=== PATIENT | male | born 1975 | race Caucasian/White ===

== ENCOUNTER → 2020-12-09 13:55 | Outpatient (CLI) | payer MEDICARE, SELFPAY | PROVIDERS: Visit Provider Obstetrics & Gynecology Gynecology | DX: Z01.818 Encounter for other preprocedural examination (principal); Z20.822 Contact with and (suspected) exposure to COVID-19 | CPT/HCPCS: U0003 ==

== ENCOUNTER 2021-01-30 15:20 | Emergency (ER) | payer MEDICARE, MEDICAID, SELFPAY ==
[2021-01-30] VITALS (10 sets, daily range): BP systolic 116–166; BP diastolic 75–128; PULSE 89–101; RESP 11–24; TEMP 36.6–36.8; O2SAT 92–99; BMI 39.0
--- NOTE | 2021-01-30 15:11 | ECG_ITS ---
APPROVED REPORT Exam: Resting ECG HR:97 bpm ECG Measurements Heart Rate 97 AXES ME 148 P 38 QRSd 106 QRS 69 QT 388 T 50 QTc 492 Conclusion Normal sinus rhythm Late R wave progression, possible normal variant, present in 2017 Isolated Q-wave in III, also present 2017 Abnormal ECG Electronically signed by : Elie Azul, 01/30/2021 18:04:19
--- NOTE | 2021-01-30 15:25 | XR_ITS ---
PROCEDURE INFORMATION: Exam: XR Chest Exam date and time: 01/30/2021 3:25 PM Age: 45 years old Clinical indication: Other: Chest pain TECHNIQUE: Imaging protocol: XR of the chest. Views: 1 view. COMPARISON: CR CXR1 CHEST-PORTABLE 04/13/2017 8:19 AM FINDINGS: Airway: The airways are patent. Lungs: Low lung volumes causes crowding of the bronchovascular structures. Subtle patchy opacities in the bilateral lung bases. Remainder of the lungs are clear. Pleural spaces: There are no pleural effusions present. There is no evidence of pneumothorax. Heart/Mediastinum: Cardiomediastinal silhouette is magnified due to technique. Bones/joints: No acute skeletal abnormality or aggressive osseous lesion. IMPRESSION: Subtle patchy airspace opacities in the bilateral lung bases may be related to crowding of bronchovascular structures versus developing acute airspace disease.
--- NOTE | 2021-01-30 15:26 | CT_ITS ---
PROCEDURE INFORMATION: Exam: CTA Chest With Contrast Exam date and time: 01/30/2021 3:26 PM Age: 45 years old Clinical indication: Chest pain; Additional info: Chest pain to back with mild hypoxia TECHNIQUE: Imaging protocol: Computed tomographic angiography of the chest with contrast. 3D rendering (Not supervised by radiologist): MIP and/or 3D reconstructed images were created by the technologist. Radiation optimization: All CT scans at this facility use at least one of these dose optimization techniques: automated exposure control; mA and/or kV adjustment per patient size (includes targeted exams where dose is matched to clinical indication); or iterative reconstruction. Contrast material: ISOVUE 370; Contrast volume: 70 ml; Contrast route: INTRAVENOUS (IV); COMPARISON: [facility] CTA-CHEST 04/13/2017 9:48 AM FINDINGS: Limitations: Study is limited by respiratory motion and suboptimal contrast bolus. Pulmonary arteries: Bolus timing is insufficient for definitive exclusion of small peripheral pulmonary emboli. No large pulmonary emboli are appreciated within the main pulmonary arteries. Proximal through distal segmental branches are obscured by suboptimal contrast bolus and respiratory motion. Aorta: The aorta is normal. There is a bovine aortic arch, with a common origin of the left common carotid and brachiocephalic arteries. Lungs: There are multiple punctate pulmonary parenchymal calcifications, consistent with remote granulomatous organism exposure. Evaluation of the lung parenchyma is partially limited by respiratory motion. Mild atelectasis is suspected at the lung bases. No acute interstitial or airspace disease. The airways are patent. Pleural spaces: Unremarkable. No pneumothorax. No pleural effusion. Heart: The heart is mildly enlarged. There is moderate atherosclerotic calcification of the coronary arteries. There is calcification of the aortic valve annulus. No pericardial thickening or effusion. Mediastinal space: A small hiatal hernia is present. Lymph nodes: Unremarkable. No enlarged lymph nodes. Liver: Slightly lobulated liver contour and hepatomegaly, raising concern for the possibility of hepatocellular disease. Correlation with pertinent labs is recommended. Gallbladder and bile ducts: Multiple calcified gallstones are present. Spleen: The spleen demonstrates punctate calcifications, consistent with remote granulomatous organism exposure. Bones/joints: No acute skeletal pathology. Moderate multilevel degenerative changes of the spine, as manifested by multilevel anterior osteophytes and multilevel decrease in intervertebral disc space. Soft tissues: Unremarkable. Other findings: The visualized intra-abdominal structures demonstrate no acute findings. IMPRESSION: 1. No large pulmonary emboli within the main pulmonary arteries, however the proximal through distal segmental branches are not confidently evaluated due to suboptimal contrast bolus and significant respiratory motion artifact. 2. No other acute thoracic pathology is otherwise appreciated. 3. Incidental findings as detailed above.
[2021-01-30 15:36] LABS: Basophils # 0.3 K/mm3 (0-0.2); Basophils % 2.3 % (0.1-2.0); Eosinophils # 0.1 K/mm3 (0.0-0.4); Eosinophils % 1.1 % (0.1-12.0); Hematocrit 47.2 % (42.0-52.0); Hemoglobin 15.5 g/dL (14.1-18.0); Lymphocytes # 2.4 K/mm3 (0.7-4.5); Lymphocytes % 19.1 % (10-50); Mean Corpuscular HGB Conc 32.9 g/dL (31.8-35.4); Mean Corpuscular Hemoglobin 31.4 pg (27.0-31.2); Mean Corpuscular Volume 95.3 fl (80-94); Mean Platelet Volume 8.2 fl (7.4-10.4); Monocytes # 0.7 K/mm3 (0.1-1.0); Monocytes % 5.4 % (1.7-9.3); Neutrophils # 8.9 K/mm3 (1.8-7.8); Platelet Count 192 K/mm3 (142-424); Red Blood Count 4.95 M/mm3 (4.60-6.20); Red Cell Distribution Width 15.1 % (11.5-17.5); White Blood Count 12.4 K/mm3 (4.8-10.8)
--- NOTE | 2021-01-30 15:41 | ECG_ITS ---
APPROVED REPORT Exam: Resting ECG HR:91 bpm ECG Measurements Heart Rate 91 AXES MI 154 P 41 QRSd 110 QRS 59 QT 394 T 41 QTc 484 Conclusion Normal sinus rhythm Cannot rule out Anterior infarct, age undetermined Abnormal ECG Electronically signed by : Elie Azul, 01/30/2021 18:03:25
[2021-01-30 16:06] LABS: Chloride 97 mmol/L (98-107); Potassium 4.6 mmoL/L (3.5-5.1); Sodium 133 mmol/L (136-145)
[2021-01-30 16:08] LABS: Alanine Aminotransferase 84 U/L (12-78); Aspartate Amino Transferase 95 U/L (17-59); Blood Urea Nitrogen 16 mg/dl (9-20); Creatinine Clearance Estimated 276 mL/min (50-200); Estimated Glomerular Filt Rate 145 ml/min (>60); GFR (African American) 176 ML/MIN (>60)
[2021-01-30 16:09] LABS: Albumin Level 4.3 g/dl (3.5-5.0); Albumin/Globulin Ratio 0.9 (1.1-1.8); Alkaline Phosphatase 187 U/L (38-126); Anion Gap 15.6 mEq/L (5-15); Bilirubin,Total 0.9 mg/dl (0.2-1.3); Calcium 9.9 mg/dl (8.4-10.2); Carbon Dioxide 25 mmol/L (22.0-30.0); Globulin 4.8 g/dL (1.3-3.2); Total Protein,Serum 9.1 g/dl (6.3-8.2)
[2021-01-30 16:21] LABS: Troponin I < 0.01 ng/ml (0.00-0.034)
[2021-01-30 16:30] LABS: Glucose 624 mg/dl (74-100)
--- NOTE | 2021-01-30 16:30 | PC.NURSE ---
[facility]RIT[facility] LABS CALLED TO Brenden WEAVER RN
--- NOTE | 2021-01-30 16:31 | HMH.EDCP ---
ED Disposition Clinical Impression: Atypical chest pain Pneumonia Qualifiers: Laterality: right Lung location: lower lobe of lung Disposition: Home, Self-Care Condition on Discharge: Good Instructions: Pneumonia-Adult Additional Instructions: Follow-up with your oncology and endocrinology physicians for your follow-up of visit today. Continue to take your insulin and return to the ED for any new or worsening symptoms regarding chest pain or shortness of breath. Finish the entire course of antibiotics Prescriptions: Doxycycline Hyclate [Doxycycline 100mg Capsule] 100 mg PO Q12 10 Days #20 cap Transmission Status: Pending to [facility] Referrals: PCP,No [Primary Care Provider] - Time of Disposition: 20:18 - Critical Care Critical Care Time: No Attestation: On 01/30/21, the high probability of a clinically significant, sudden or life threatening deterioration of the following system(s) required my full and direct attention, intervention and personal management. The time I documented below is in addition to time spent performing reported procedures but includes the following listed in this critical care notation. Medical Decision Making - Medical Records Medical records reviewed: Yes: I reviewed the patient's medical records. - Abdifatah Inquiry Pt receiving controlled substance: No Vital Signs: 01/30/21 15:20 01/30/21 16:00 01/30/21 16:30 Temperature 98.2 F Temperature Source Oral Pulse Rate 94 H 92 H Pulse Rate [Radial] 99 H Respiratory Rate 24 12 12 Blood Pressure 116/75 129/83 Blood Pressure [Right Arm] 122/81 Blood Pressure Mean 98 98 Blood Pressure Mean [Right Arm] 94 Blood Pressure Source Blood Pressure Position Blood Pressure Position [Right Arm] Sitting 02 Sat by Pulse Oximetry 99 93 L 92 L Oxygen Delivery Method Room Air 01/30/21 16:57 01/30/21 17:00 01/30/21 18:01 Temperature Temperature Source Pulse Rate 89 91 H 94 H Pulse Rate [Radial] Respiratory Rate 11 L 16 16 Blood Pressure 130/92 H 135/85 146/105 H Blood Pressure [Right Arm] Blood Pressure Mean 104 101 118 Blood Pressure Mean [Right Arm] Blood Pressure Source Automatic Cuff Blood Pressure Position Sitting Blood Pressure Position [Right Arm] 02 Sat by Pulse Oximetry 92 L 93 L Oxygen Delivery Method Room Air Room Air 01/30/21 18:25 01/30/21 18:31 01/30/21 19:42 Temperature Temperature Source Pulse Rate 96 H 101 H 91 H Pulse Rate [Radial] Respiratory Rate Blood Pressure 166/93 H 144/128 H 123/79 Blood Pressure [Right Arm] Blood Pressure Mean 113 133 93 Blood Pressure Mean [Right Arm] Blood Pressure Source Blood Pressure Position Blood Pressure Position [Right Arm] 02 Sat by Pulse Oximetry 94 L Oxygen Delivery Method Room Air - Lab Data Lab Results 01/30/21 15:20: WBC 12.4 H, RBC 4.95, Hgb 15.5, Hct 47.2, MCV 95.3 H, MCH 31.4 H, MCHC 32.9, RDW 15.1, Plt Count 192, MPV 8.2, Neut % (Auto) 72.0, Lymph % (Auto) 19.1, [place] % (Auto) 5.4, Eos % (Auto) 1.1, Baso % (Auto) 2.3 H, Neut # (Auto) 8.9 H, Lymph # (Auto) 2.4, [place] # (Auto) 0.7, Eos # (Auto) 0.1, Baso # (Auto) 0.3 H 01/30/21 15:20: Sodium 133 L, Potassium 4.6, Chloride 97 L, Carbon Dioxide 25, Anion Gap 15.6 H, BUN 16, Creatinine 0.60 L, Estimated Creat Clear 276, Estimated GFR 145, Est GFR ( Amer) 176, Glucose 624 H*, Calcium 9.9, Total Bilirubin 0.9, AST 95 H, ALT 84 H, Alkaline Phosphatase 187 H, Troponin I < 0.01, Total Protein 9.1 H, Albumin 4.3, Globulin 4.8 H, Albumin/Globulin Ratio 0.9 L 01/30/21 18:38: Troponin I < 0.01 01/30/21 19:00: Urine Color Yellow, Urine Appearance Clear, Urine pH 6.0, Ur Specific [place] <= 1.005, Urine Protein Negative, Urine Glucose (UA) 3+, Urine Ketones Negative, Urine Blood Trace-i, Urine Nitrate Negative, Urine Bilirubin Negative, Urine Urobilinogen 0.2, Ur Leukocyte Esterase Negative, Urine RBC Occasional, Urine WBC 3-5, Ur Squamous E
--- NOTE | 2021-01-30 17:32 | PC.NURSE ---
pt to rad
--- NOTE | 2021-01-30 18:28 | PC.NURSE ---
FAMILY AT BEDSIDE UPDATED ON PLAN OF CARE
[2021-01-30 18:46] LABS: Adenovirus,PCR Not Detected (NotDetected); Bordetella Pertussis Not Detected (NotDetected); Chlamydophila Pneumoniae, PCR Not Detected (NotDetected); Coronavirus 19, PCR Not Detected (NotDetected); Coronavirus 229E Not Detected (NotDetected); Coronavirus NL63 Not Detected (NotDetected); Coronavirus OC43 Not Detected (NotDetected); Coronovirus HKU1,PCR Not Detected (NotDetected); Human Metapneumovirus Not Detected (NotDetected); Influenza A, PCR Not Detected (NotDetected); Influenza AH1, 2009 Not Detected (NotDetected); Influenza AH1, PCR Not Detected (NotDetected); Influenza AH3,PCR Not Detected (NotDetected); Influenza B, PCR Not Detected (NotDetected); Mycoplasma Pneumoniae, PCR Not Detected (NotDetected); Parainfluenza 1, PCR Not Detected (NotDetected); Parainfluenza 2, PCR Not Detected (NotDetected); Parainfluenza 3, PCR Not Detected (NotDetected); Parainfluenza 4, PCR Not Detected (NotDetected); Respiratory Syncytial Virus Not Detected (NotDetected); Rhinovirus/Enterovirus Not Detected (NotDetected)
[2021-01-30 19:02] LABS: Microscopic, Urine URINE MICROSCOPIC (MICROSCOPIC)
[2021-01-30 19:03] LABS: Appearance,Urine CLEAR (Clear); Blood, Urine TRACE-I (Negative); Color,Urine YELLOW (Yellow); Glucose,Urine (UA) 3+ (Negative); Ketones,Urine Negative (Negative); Protein,Urine Negative (Negative); Specific Gravity, Urine <= 1.005 (1.005-1.030)
[2021-01-30 19:04] LABS: Bilirubin,Urine Negative (Negative); Leukocyte Esterase,Urine Negative (Negative); Nitrate,Urine Negative (Negative); Urobilinogen,Urine 0.2 EU/dl (0.2)
[2021-01-30 19:13] LABS: Troponin I < 0.01 ng/ml (0.00-0.034)
[2021-01-30 19:17] LABS: Bacteria,Urine Trace /lpf; RBC,Urine Occasional #/hpf (0-3)
[2021-03-20 11:49] LABS: POC Glucose,Bedside 458 (70-110)
== END 2021-01-30 20:38 | disposition home or self-care (01) ==
PROVIDERS: Emergency Provider Student in an Organized Health Care Education/Training Program
DX: J18.9 Pneumonia, unspecified organism (principal); C95.10 Chronic leukemia of unspecified cell type not having achieved remission; Z88.7 Allergy status to serum and vaccine
CPT/HCPCS: 71045; 71275; 80053; 81001; 82962; 84484; 85025; 87581; 87633; 87798; 93005; 96365; 96375; 96376; 99283; J2405; Q9967

== ENCOUNTER 2021-02-01 14:07 | Emergency (ER) | payer MEDICARE, MEDICAID, SELFPAY ==
--- NOTE | 2021-02-01 | XR_ITS ---
PROCEDURE: XR CHEST PORTABLE CLINICAL HISTORY: ET TUBE PLACEMENT, PATIENT CODING COMPARISON: CR CXR1 CHEST-PORTABLE from 04/02/2017 CR CXR1 CHEST-PORTABLE from 04/13/2017 CR XR CHEST PORTABLE from 01/30/[address] ANGIO CHEST from 01/30/2021 FINDINGS: 1431 hours. Endotracheal tube tip is in good position 5 cm above the paul at the T3 level. Overlying monitor artifact. Mild cardiomegaly without failure. Right hemidiaphragm is elevated. Mild right basilar atelectasis. A cluster calcified nodules noted in the left midlung laterally No acute bony abnormalities. IMPRESSION: Endotracheal tube in good position. Elevated right hemidiaphragm with right basilar atelectasis Dictated by: Bunny Soria MD 02/01/2021 15:08 Bunny Soria MD in [facility] 02/01/2021 15:08
[2021-02-01 14:07] VITALS: BP 135/83; BP 51/36; BP 91/75
[2021-02-01 14:09] VITALS: BP 136/98; PULSE 0; RESP 18; TEMP 35.6; O2SAT 87; BMI 39.9
--- NOTE | 2021-02-01 14:27 | ECG_ITS ---
APPROVED REPORT Exam: Resting ECG HR:129 bpm ECG Measurements Heart Rate 129 AXES NC 154 P 43 QRSd 156 QRS 156 QT 310 T 34 QTc 454 Conclusion Sinus tachycardia Possible Left atrial enlargement Right bundle branch block Left posterior fascicular block Bifascicular block Abnormal ECG Electronically signed by : Elie Azul, 02/02/2021 21:18:35
--- NOTE | 2021-02-01 14:46 | PC.NURSE ---
SPOKE WITH AJ STEVENS FROM [employer] AT THIS TIME. AJ STATED PATIENT WAS NOT A CANDIDATE FROM [facility].
--- NOTE | 2021-02-01 14:51 | PC.NURSE ---
Toan Villeda returned call advising someone would be there as soon as they can.
--- NOTE | 2021-02-01 15:15 | PC.NURSE ---
1407: PATIENT ARRIVED PER EMS WITH ACLS PROTOCOL INITIATED. PATIENT HAD #20 LAC, 1 EPI GIVEN, UNSUCCESSFUL ATTEMPT TO INTUBATE. PATIENT TRANSFERRED OVER ON [facility] STRETCHER AND [facility] STAFF PROCEEDED WITH CODE. 1409: EPINEPHRINE 1MG X1 PER S. MECHE SWISS TYPE SCREW MACHINE OPERATOR 1410: RHYTHM CHECK - ASYSTOLE, IO INSERTED PER DR. ONOFRE 1411: EPINEPHRINE 1MG X1 PER S. LAYO RN 1412: CALCIUM 1GM X1 PER Phill. LAYO RN, 1 AMP SODIUM BICARB PER S. LAYO, RB, #20 RAC INSERTED PER S. JULIO MCGREGOR 1413: RHYTHM CHECK - ASYSTOLE 1414: EPINEPHRINE 1MG X1 PER S. MECHE SWISS TYPE SCREW MACHINE OPERATOR 1415: FSBS:458 1416: CALCIUM 1GM X1 PER S. MECHE SWISS TYPE SCREW MACHINE OPERATOR 1417: RHYTHM CHECK - VFIB - DEFIBRILLATED 120 JOULES, WIDE COMPLEX TACHYCARDIA - HR:120 1418: EPINEPHRINE 1MG X1 PER S. MECHE SWISS TYPE SCREW MACHINE OPERATOR 1420: BP: 135/83, HR: 144, SPO2: 61% 1420: DR. MCKAY INTUBATED WITH 7.5 ETT, 25CM AT THE LIP, COLOR CHANGE NOTED AND BILATERAL BREATH SOUNDS. ETT CONFIRMED WITH PORTABLE CXR. 1423: DR. MCKAY CONSULTING WITH DR. RODRIGUEZ 1423: EPINEPHRINE 1MG X1 PER S. SELINA MCGREGOREDIC, BP: 51/36 1424: NO PULSE DETECTED, CPR RESUMED 1426: 1 AMP SODIUM BICARB X1 AND 1 GRAM OF MAGNESIUM GIVEN PER SNupur MCGREGOR SWISS TYPE SCREW MACHINE OPERATOR 1427: RHYTHM CHECK : PULSE NOTED - 122, WIDE COMPLEX TACHYCARDIA. EKG PERFORMED BP: 91/75 1432: EPINEPHRINE 1MG X1 PER S. MECHE SWISS TYPE SCREW MACHINE OPERATOR 1433:CALCIUM 1GM X1 PER S. MECHE SWISS TYPE SCREW MACHINE OPERATOR 1435: RHYTHM CHECK - PULSE NOTED - HR: 133 - WIDE COMPLEX TACHYCARDIA, UNABLE TO OBTAIN BP 1439: PULSE DROPPING, 69. STILL UNABLE TO OBTAIN BP. 1439: CARDIAC U/S PER DR. MCKAY 1440: CARDIAC STANDSTILL PER DR. MCKAY - TIME OF RECORDED. 1445: OUTPATIENT PROGRAM COORDINATOR CONTACTED, HE STATED HE WOULD BE IN ROUTE TO [facility]. 1446: [facility] CONTACTED PER Noemi CARRERA RN.
--- NOTE | 2021-02-01 15:16 | HMH.EDCPR ---
ED Disposition Clinical Impression: Cardiac arrest Acute respiratory failure Qualifiers: Respiratory failure complication: hypoxia Qualified Code(s): J96.01 - Acute respiratory failure with hypoxia Disposition: Condition on Discharge: Referrals: PCP,No [Primary Care Provider] - - Critical Care Critical Care Time: Yes Attestation: On 02/01/21, the high probability of a clinically significant, sudden or life threatening deterioration of the following system(s) required my full and direct attention, intervention and personal management. The time I documented below is in addition to time spent performing reported procedures but includes the following listed in this critical care notation. Total Critical Care Time: 40 Vital system(s) involved:: Circulatory Failure, Central Nervous System, Metabolic Failure, Respiratory Failure, Renal Failure My critical care processes included: Assessment & monitoring of V/S, Initial and Re-exams, Data Review/Interpretation, Medication Orders and management, Documentation [facility] Code Documentation - Arrest Information Outside of Hospital The Code Document Section documentation for [id number] Carlos A Sampson was populated with data that defaulted in from the tinsmith helper in the Code Assessment on f_Reg Service Date] to provide within this report, the status and treatment of the patient in the ED during a Code. This documentation will be supplemented with my direct findings within the body of the report. Date Treatment Initiated: 02/01/21 Time Treatment Initiated: 14:09 (on arrival) Treatment Initiated By: EMS Location of Arrest: home Arrest Witnessed: No Estimated Down Time: 35 min - Arrest Information in Hospital Date of Arrest: 02/01/21 - ALS Code Inititation ALS Initiated By: EMS ALS Type: ACLS ALS Initiated Start Time: 13:50 - Patient Condition At Code Start Condition of Patient at Start of Code: Pulseless, Apneic Monitoring Devices: ECG Monitor, Pulse Oximeter - Circulation Initial Cardiac Rhythm: Asystole - Oxygenation Oxygen Breathing Status: Apneic Oxygen Delivery Method: Bag-Valve Mask - Labs Fingerstick Blood Glucose: 458 - Assisted Ventilation ETT Insertion Time: 14:20 ETT Size: 7.5 ETT Insertion Site: Oral Endotracheal ETT Position at Lip: 23 ETT Placement Confirmation: Chest X-ray ETT Tube Inserted By: Dr. Mckay - Vascular Access Left Tibia (Intra-Osseous) Insertion Date: 02/01/21 Insertion Time: 14:09 IV Insertion Attempts: 1 IV Type: Intraosseous IV Inserted By: Dr. Mckay - Code End Time Code Ended: 14:40 Patient Successfully Resuscitated: No Reason Code Ended: - Efforts Terminated Family Members Present During Code: No Names of All Individuals Present at Code: DR. Mckay. Joan MCGREGOR, PATENTS EXAMINER. Noemi CARRERA RN. Joan VASQUES RN. Rhonda CURTIS, RT. Coby BROWNE, RT - Patient Expiration Date: 02/01/21 Expiration Time: 14:40 Pronounced by: DR. MCKAY Time Pronounced: 14:40 Post Mortem Care Provided: Yes Next of Kin Notified: YES Next of Kin Notification Time: 15:14 Organ Donor: No Angel Notified: Yes Name of Angel Thermospray Operator: AJ. PATIENT R/O FOR ORGAN DONATION. SEE NOTE FOR CASE ID # Wheel Adjuster Case: Yes Wheel Adjuster Notified: Yes Wheel Adjuster Notification Date: 02/01/21 Wheel Adjuster Notification Time: 14:45 Medical Decision Making - Medical Records Medical records reviewed: Yes: I reviewed the patient's medical records. - Abdifatah Inquiry Pt receiving controlled substance: No Vital Signs: 02/01/21 14:09 Temperature 96.1 F L Temperature Source Tympanic Pulse Rate [Right] 0 L Respiratory Rate 18 Blood Pressure [Right Arm] 136/98 H Blood Pressure Mean [Right Arm] 110 02 Sat by Pulse Oximetry 87 L Oxygen Delivery Method Mechanical Ventilation - ECG Data Tracing #1 Tachycardic rate of 129 bpm, normal VT interval, sinus tachycardia with bifascicular block, nonspecific changes, wide-co
--- NOTE | 2021-02-01 15:24 | PC.NURSE ---
Family in room with pt.
--- NOTE | 2021-02-01 15:37 | PC.NURSE ---
PROVISIONAL REPORT COMPLETE FOR CLARIFIER OPERATOR TO COMPLETE WHEN THEY ARRIVAL
--- NOTE | 2021-02-01 15:46 | PC.NURSE ---
BENCH MOVER ARRIVED TO [facility].
--- NOTE | 2021-02-01 15:46 | PC.NURSE ---
UNABLE TO DOCUMENT CALCIUM AND MAGNESIUM IVP ON DEC. PHARMACY AWARE.
--- NOTE | 2021-02-01 16:25 | PC.NURSE ---
per Tapper Helper request, ET tube was taken out and IVs removed for family viewing
[2021-02-01 17:05] VITALS: BP 0/0; PULSE 0; RESP 0; TEMP -17.7; TEMP 0; O2SAT 0
== END 2021-02-01 17:05 | disposition expired ==
PROVIDERS: Emergency Provider Emergency Medicine
DX: I46.9 Cardiac arrest, cause unspecified (principal); J96.01 Acute respiratory failure with hypoxia; C95.10 Chronic leukemia of unspecified cell type not having achieved remission; E11.9 Type 2 diabetes mellitus without complications; I10 Essential (primary) hypertension
CPT/HCPCS: 31500; 71045; 93005; 96365; 96375; 99291